=== PATIENT | female | born 1990 | race Caucasian/White ===

== ENCOUNTER 2017-05-30 12:10 | Emergency (ER) | payer OTHER, SELFPAY ==
[~2017-05-30] VITALS: Ht 170.2 cm; Wt 62.3 kg
[2017-05-30] MEDS ORDERED: prenatal vitamins PO (12:20)
[2017-05-30] MEDS ORDERED: diphenhydrAMINE INJ 50MG/ML VIAL (J1200) IV STA (12:26)
[2017-05-30] MEDS ORDERED: PROMETHAZINE INJ 25 MG/ML VIAL (J2550) IV ONE (12:30)
[2017-05-30] MEDS ORDERED: NS 1,000 ML IV ONE (12:30)
[2017-05-30 12:51] LABS: BASO % 0.2 % (0.0-1.0); EOS # 0.1 10^3/uL (0.0-0.50); EOS % 0.3 % (0.0-3.0); IMMATURE GRANULOCYTE % 0.4 % (0-0); LYMPH # 0.9 10^3/uL (1.5-6.5); LYMPH % 5.4 % (24.0-44.0); MEAN CORPUSCULAR HEMOGLOBIN 26.8 pg (27.0-33.0); MEAN CORPUSCULAR HGB CONC 33.6 g/dl (32.0-36.5); MEAN CORPUSCULAR VOLUME 79.9 fl (80.0-96.0); MONO # 0.6 10^3/uL (0.0-0.8); MONO % 3.7 % (0.0-5.0); NEUTROPHILS # 14.9 10^3/uL (1.8-7.7); PLATELET COUNT, AUTOMATED 299 10^3/uL (150-450); RED CELL DISTRIBUTION WIDTH 14.6 % (11.5-14.5); WHITE BLOOD COUNT 16.5 10^3/uL (4.0-10.0)
[2017-05-30 13:30] LABS: ALBUMIN/GLOBULIN RATIO 1.11 (1.00-1.93); ALKALINE PHOSPHATASE 39 U/L (45-117); ALT/SGPT 16 U/L (12-78); ANION GAP 9 MEQ/L (8-16); AST/SGOT 14 U/L (15-37); BILIRUBIN,TOTAL 0.7 MG/DL (0.2-1.0); BLOOD UREA NITROGEN 8 MG/DL (7-18); CALCIUM LEVEL 9.1 MG/DL (8.5-10.1); CARBON DIOXIDE LEVEL 24 MEQ/L (21-32); CHLORIDE LEVEL 104 MEQ/L (98-107); CREATININE FOR GFR 0.62 MG/DL (0.55-1.02); GLOMERULAR FILTRATION RATE > 60.0 (>60); GLUCOSE, FASTING 91 MG/DL (70-105); HCG, SERUM QUANTITATIVE 84074 MIU/ML; POTASSIUM SERUM 3.5 MEQ/L (3.5-5.1); SODIUM LEVEL 137 MEQ/L (136-145); TOTAL PROTEIN 7.6 GM/DL (6.4-8.2)
--- NOTE | 2017-05-30 13:35 | REP ---
First trimester obstetric ultrasound, cramping and vomiting, emergency room request: There are no comparison studies. The bladder is nondistended. There is an intrauterine gestational sac with a pole. cardiac activity is identified. The heart rate is 178 beats per minute. The pole crown-rump length is 2.8 cm corresponding 9 weeks 4 days gestational age. The CONCEPCION is 12/29/2017. There is no subchorionic hematoma. The maternal adnexa and cul-de-sac are unremarkable. With Doppler assessment there is vascular flow in both right and left ovaries. Signed by Mark Calvo MD 05/30/2017 01:27 P
[2017-05-30] MEDS ORDERED: DRAM50TA7 PO (13:58)
[2017-05-30 14:03] VITALS: BP 104/64
== END 2017-05-30 14:08 | disposition home or self-care (01) ==
LOC: M ED 12:10
DX: O26.891 Other specified pregnancy related conditions, first trimester (principal); A08.4 Viral intestinal infection, unspecified; Z3A.10 10 weeks gestation of pregnancy
CPT/HCPCS: 76801; 80053; 81001; 83690; 84702; 85025; 87086; 93976; 96361; 96374; 96375; 99283; J1200

== ENCOUNTER 2017-06-01 15:52 | Emergency (ER) | payer OTHER ==
[~2017-06-01] VITALS: Ht 170.2 cm; Wt 62.3 kg
[~2017-06-01 15:52] MED LIST: DRAM50TA7 PO; prenatal vitamins PO
[2017-06-01] MEDS ORDERED: NS 1,000 ML IV ONE (16:30)
[2017-06-01 16:57] LABS: BASO % 0.1 % (0.0-1.0); EOS # 0.1 10^3/uL (0.0-0.50); EOS % 0.7 % (0.0-3.0); IMMATURE GRANULOCYTE % 0.3 % (0-0); LYMPH # 1.4 10^3/uL (1.5-6.5); LYMPH % 21.1 % (24.0-44.0); MEAN CORPUSCULAR HEMOGLOBIN 26.6 pg (27.0-33.0); MEAN CORPUSCULAR HGB CONC 33.4 g/dl (32.0-36.5); MEAN CORPUSCULAR VOLUME 79.6 fl (80.0-96.0); MONO # 0.6 10^3/uL (0.0-0.8); MONO % 8.3 % (0.0-5.0); NEUTROPHILS # 4.7 10^3/uL (1.8-7.7); NEUTROPHILS % 69.5 % (36.0-66.0); PLATELET COUNT, AUTOMATED 284 10^3/uL (150-450); RED CELL DISTRIBUTION WIDTH 14.6 % (11.5-14.5); WHITE BLOOD COUNT 6.8 10^3/uL (4.0-10.0)
--- NOTE | 2017-06-01 17:01 | REP ---
Chest one-view HISTORY: Shortness of breath Comparison: None The lungs are clear. The heart is normal in size. The pulmonary vasculature is normal in appearance. Impression: No acute disease. Signed by Boaz Galvan MD 06/01/2017 04:52 P
[2017-06-01 17:33] LABS: ANION GAP 9 MEQ/L (8-16); BLOOD UREA NITROGEN 5 MG/DL (7-18); CALCIUM LEVEL 9.3 MG/DL (8.5-10.1); CARBON DIOXIDE LEVEL 23 MEQ/L (21-32); CHLORIDE LEVEL 107 MEQ/L (98-107); CREATININE FOR GFR 0.56 MG/DL (0.55-1.02); FREE T4 1.22 NG/DL (0.76-1.46); GLOMERULAR FILTRATION RATE > 60.0 (>60); GLUCOSE, FASTING 87 MG/DL (70-105); MAGNESIUM LEVEL 2.1 MG/DL (1.8-2.4); PHOSPHORUS LEVEL 3.3 MG/DL (2.5-4.9); POTASSIUM SERUM 3.6 MEQ/L (3.5-5.1); SODIUM LEVEL 139 MEQ/L (136-145)
[2017-06-01 18:16] VITALS: BP 118/71
--- NOTE | 2017-06-02 07:09 | ECGEPIP ---
Stationary ECG Study [facility] - ED Test Date: 2017-06-01 Pat Name: JADEN MEEKS Department: Room: - Gender: F Lead Massage Therapist: anita : 1990 Requested By: ARAMIS Granados Order Number: [id number] Reading MD: Oswald Wilson Measurements Intervals Corinne Rate: 75 P: 60 TN: 133 QRS: 82 QRSD: 86 T: 68 QT: 358 QTc: 402 Interpretive Statements SINUS RHYTHM NO PRIORS Electronically Signed On 06-02-2017 7:09:23 EDT by Oswald Wilson
== END 2017-06-01 18:17 | disposition home or self-care (01) ==
LOC: M ED 15:52
DX: O99.89 Other specified diseases and conditions complicating pregnancy, childbirth and the puerperium (principal); R55 Syncope and collapse; Z3A.10 10 weeks gestation of pregnancy

== ENCOUNTER 2017-06-12 23:16 | Emergency (ER) | payer OTHER ==
[~2017-06-12] VITALS: Ht 170.2 cm; Wt 61.4 kg
[2017-06-12] MEDS ORDERED: ZOLO100T PO (23:51)
[2017-06-13 01:57] LABS: MEAN CORPUSCULAR HEMOGLOBIN 26.9 pg (27.0-33.0); MEAN CORPUSCULAR HGB CONC 33.4 g/dl (32.0-36.5); MEAN CORPUSCULAR VOLUME 80.6 fl (80.0-96.0); PLATELET COUNT, AUTOMATED 312 10^3/uL (150-450); RED CELL DISTRIBUTION WIDTH 14.1 % (11.5-14.5); WHITE BLOOD COUNT 11.3 10^3/uL (4.0-10.0)
--- NOTE | 2017-06-13 03:20 | REPUSA ---
CLINICAL HISTORY: Vaginal bleeding. TECHNIQUE: Transabdominal ultrasound of the pelvis was performed. FINDINGS: Single, live intrauterine gestation. The crown-rump length measures 5.7 cm. This corresponds to an estimated gestational age of 12 weeks a nd 2 days. heart rate 162 beats per minute. Cervical length of 3 cm. No psychotic hemorrhage was identified. No maternal adnexal abnormality is noted. IMPRESSION: Single, live intrauterine gestation. No abnormality is seen.
[2017-06-13 04:40] VITALS: BP 116/71
== END 2017-06-13 04:42 | disposition home or self-care (01) ==
LOC: M ED 23:16
DX: O20.0 Threatened abortion (principal); Z3A.00 Weeks of gestation of pregnancy not specified

== ENCOUNTER 2017-07-05 10:28 | Emergency (ER) | payer OTHER ==
[~2017-07-05] VITALS: Ht 167.6 cm; Wt 63.6 kg
[~2017-07-05 10:28] MED LIST changes: +ZOLO100T PO
[2017-07-05] MEDS ORDERED: HYDR-3363 (10:41)
[2017-07-05 11:49] LABS: BASO % 0.3 % (0.0-1.0); EOS # 0.1 10^3/uL (0.0-0.50); EOS % 1.2 % (0.0-3.0); IMMATURE GRANULOCYTE % 0.2 % (0-0); LYMPH # 1.8 10^3/uL (1.5-6.5); LYMPH % 20.2 % (24.0-44.0); MEAN CORPUSCULAR HEMOGLOBIN 26.9 pg (27.0-33.0); MEAN CORPUSCULAR HGB CONC 33.2 g/dl (32.0-36.5); MEAN CORPUSCULAR VOLUME 81.1 fl (80.0-96.0); MONO # 0.5 10^3/uL (0.0-0.8); MONO % 5.8 % (0.0-5.0); NEUTROPHILS # 6.3 10^3/uL (1.8-7.7); NEUTROPHILS % 72.3 % (36.0-66.0); PLATELET COUNT, AUTOMATED 287 10^3/uL (150-450); RED CELL DISTRIBUTION WIDTH 14.2 % (11.5-14.5); WHITE BLOOD COUNT 8.7 10^3/uL (4.0-10.0)
[2017-07-05 12:21] LABS: ANION GAP 8 MEQ/L (8-16); BLOOD UREA NITROGEN 8 MG/DL (7-18); CALCIUM LEVEL 8.6 MG/DL (8.5-10.1); CARBON DIOXIDE LEVEL 27 MEQ/L (21-32); CHLORIDE LEVEL 105 MEQ/L (98-107); CREATININE FOR GFR 0.53 MG/DL (0.55-1.02); GLOMERULAR FILTRATION RATE > 60.0 (>60); GLUCOSE, FASTING 61 MG/DL (70-105); HCG, SERUM QUANTITATIVE 41376 MIU/ML; POTASSIUM SERUM 3.6 MEQ/L (3.5-5.1); SODIUM LEVEL 140 MEQ/L (136-145)
[2017-07-05 13:20] VITALS: BP 118/73
--- NOTE | 2017-07-09 11:10 | REP ---
Clinical: well-being. Vaginal bleeding. Comparison: 06/13/2017 . Findings: Examination demonstrates a single live early intrauterine in variable presentation. motion is identified by technologist. Placenta is noted posteriorly, grade zero, and with evidence for marginal previa less than 2 cm from the closed internal os. Amniotic fluid volume is normal. Cervix measures 4.0 cm in length and appears closed. No evidence for nuchal cord. Gestational age by LMP 15 weeks 3 days with CONCEPCION 12/24/2017 . Gestational age by current measurements 15 weeks 2 days with CONCEPCION 12/25/2017 . FHR equals 141 beats per minute. BPD 3.0 cm 15 weeks 4 days HC 11.3 cm 15 weeks 3 days AC 9.0 cm 15 weeks 2 days FL 1.7 cm 15 weeks 0 days HL 1.8 cm 15 weeks 1 day HC/AC ratio 1.25 Estimated weight 116 grams ( 32nd percentile). Impression: 1. Single live early intrauterine in variable presentation demonstrating appropriate interval growth measuring at 15 weeks 2 days gestational age. 2. Marginal placenta previa. 3. Complete anatomical assessment should be performed at 19-20 weeks. Signed by Pedro Sheikh MD 07/05/2017 01:06 P
== END 2017-07-05 13:21 | disposition home or self-care (01) ==
LOC: M ED 10:28
DX: O26.892 Other specified pregnancy related conditions, second trimester (principal); R10.2 Pelvic and perineal pain; O26.852 Spotting complicating pregnancy, second trimester; O44.22 Partial placenta previa NOS or without hemorrhage, second trimester; Z3A.15 15 weeks gestation of pregnancy

== ENCOUNTER 2018-02-08 20:22 | Emergency (ER) | payer OTHER ==
[2018-02-08 21:50] LABS: BASO # 0.1 10^3/uL (0.0-0.2); EOS # 0.3 10^3/uL (0.0-0.50); EOS % 4.6 % (0.0-3.0); HEMATOCRIT 37.2 % (36.0-47.0); HEMOGLOBIN 11.7 g/dl (12.0-15.5); IMMATURE GRANULOCYTE % 0.2 % (0-3.0); LYMPH # 2.2 10^3/uL (1.5-6.5); LYMPH % 35.8 % (24.0-44.0); MEAN CORPUSCULAR HEMOGLOBIN 23.9 pg (27.0-33.0); MEAN CORPUSCULAR HGB CONC 31.5 g/dl (32.0-36.5); MEAN CORPUSCULAR VOLUME 76.1 fl (80.0-96.0); MONO # 0.5 10^3/uL (0.0-0.8); MONO % 7.3 % (0.0-5.0); NEUTROPHILS # 3.2 10^3/uL (1.8-7.7); NEUTROPHILS % 51.1 % (36.0-66.0); PLATELET COUNT, AUTOMATED 290 10^3/uL (150-450); RED BLOOD COUNT 4.89 10^6/uL (4.00-5.40); RED CELL DISTRIBUTION WIDTH 20.3 % (11.5-14.5); WHITE BLOOD COUNT 6.3 10^3/uL (4.0-10.0)
[2018-02-08 22:21] LABS: ANION GAP 8 MEQ/L (8-16); BLOOD UREA NITROGEN 17 MG/DL (7-18); CALCIUM LEVEL 8.8 MG/DL (8.5-10.1); CARBON DIOXIDE LEVEL 25 MEQ/L (21-32); CHLORIDE LEVEL 109 MEQ/L (98-107); CREATININE FOR GFR 0.91 MG/DL (0.55-1.30); FREE THYROXINE INDEX 2.6 % (1.3-4.8); GLOMERULAR FILTRATION RATE > 60.0 (>60); GLUCOSE, FASTING 91 MG/DL (70-100); SODIUM LEVEL 142 MEQ/L (136-145); T UPTAKE 36 % (30-39); THYROXINE (T4) 7.3 UG/DL (4.5-12.0)
== END 2018-02-08 23:08 | disposition home or self-care (01) ==
LOC: M ED 20:22
DX: Z86.79 Personal history of other diseases of the circulatory system (principal); R00.1 Bradycardia, unspecified; F32.9 Major depressive disorder, single episode, unspecified; Z79.899 Other long term (current) drug therapy
CPT/HCPCS: 93005

== ENCOUNTER → 2018-09-03 | Outpatient (CLI) | payer OTHER ==
[~2018-09-03] MED LIST changes: +HYDR-3363
[2018-09-03 17:17] LABS: BASO # 0.1 10^3/uL (0.0-0.2); BASO % 0.7 % (0.0-1.0); EOS # 0.2 10^3/uL (0.0-0.50); EOS % 2.1 % (0.0-3.0); HEMATOCRIT 42.2 % (36.0-47.0); HEMOGLOBIN 13.8 g/dl (12.0-15.5); LYMPH # 2.5 10^3/uL (1.5-6.5); LYMPH % 29.7 % (24.0-44.0); MEAN CORPUSCULAR HGB CONC 32.7 g/dl (32.0-36.5); MEAN CORPUSCULAR VOLUME 79.6 fl (80.0-96.0); MONO # 0.6 10^3/uL (0.0-0.8); MONO % 7.6 % (0.0-5.0); NEUTROPHILS # 4.9 10^3/uL (1.8-7.7); NEUTROPHILS % 59.7 % (36.0-66.0); PLATELET COUNT, AUTOMATED 335 10^3/uL (150-450); WHITE BLOOD COUNT 8.3 10^3/uL (4.0-10.0)
[2018-09-03 17:43] LABS: ALBUMIN 4.2 GM/DL (3.2-5.2); ALT/SGPT 25 U/L (12-78); BILIRUBIN,TOTAL 0.3 MG/DL (0.2-1.0); BLOOD UREA NITROGEN 13 MG/DL (7-18); CALCIUM LEVEL 9.4 MG/DL (8.5-10.1); CARBON DIOXIDE LEVEL 25 MEQ/L (21-32); CHLORIDE LEVEL 104 MEQ/L (98-107); CREATININE FOR GFR 0.82 MG/DL (0.55-1.30); FERRITIN 14 NG/ML (8-252); FREE T4 0.93 NG/DL (0.76-1.46); GLOMERULAR FILTRATION RATE > 60.0 (>60); GLUCOSE, FASTING 84 MG/DL (70-100); IRON (FE) 38 UG/DL (50-170); POTASSIUM SERUM 4.1 MEQ/L (3.5-5.1); SODIUM LEVEL 139 MEQ/L (136-145); TOTAL IRON BINDING CAPACITY 423 UG/DL (250-450); TOTAL PROTEIN 7.7 GM/DL (6.4-8.2)
== END ==
LOC: M SMT 14:35
PROVIDERS: ATTEND Physician Assistant
DX: Z13.0 Encounter for screening for diseases of the blood and blood-forming organs and certain disorders involving the immune mechanism (principal)

== ENCOUNTER → 2019-05-01 | Outpatient (REF) | payer OTHER ==
[2019-05-01 13:20] LABS: HEMOGLOBIN 13.9 g/dl (12.0-15.5); MEAN CORPUSCULAR HEMOGLOBIN 29.6 pg (27.0-33.0); MEAN CORPUSCULAR HGB CONC 33.9 g/dl (32.0-36.5); MEAN CORPUSCULAR VOLUME 87.2 fl (80.0-96.0); PLATELET COUNT, AUTOMATED 282 10^3/uL (150-450); WHITE BLOOD COUNT 9.4 10^3/uL (4.0-10.0)
[2019-05-01 14:12] LABS: HCG, SERUM QUANTITATIVE 103171 MIU/ML; RUBELLA IgG QUALITATIVE EQUIVOCAL (IMMUNE)
[2019-05-01 14:34] LABS: HEPATITIS C VIRUS ABY INDEX 0.1 INDEX (<0.8); HIV 1&2 SCREEN CENTAUR NEGATIVE (NEGATIVE)
== END ==
LOC: M LAB REF 12:11
PROVIDERS: ATTEND Nurse Practitioner Women's Health
DX: Z32.01 Encounter for pregnancy test, result positive (principal); O36.80X0 Pregnancy with inconclusive fetal viability, not applicable or unspecified; Z3A.00 Weeks of gestation of pregnancy not specified

== ENCOUNTER → 2019-09-16 | Outpatient (CLI) | payer OTHER ==
[2019-09-16 12:40] LABS: HEMATOCRIT 33.2 % (36.0-47.0); HEMOGLOBIN 10.5 g/dl (12.0-15.5); MEAN CORPUSCULAR HEMOGLOBIN 26.7 pg (27.0-33.0); MEAN CORPUSCULAR HGB CONC 31.6 g/dl (32.0-36.5); MEAN CORPUSCULAR VOLUME 84.5 fl (80.0-96.0); PLATELET COUNT, AUTOMATED 348 10^3/uL (150-450); RED BLOOD COUNT 3.93 10^6/uL (4.00-5.40); WHITE BLOOD COUNT 6.8 10^3/uL (4.0-10.0)
== END ==
LOC: M LAB 10:59
PROVIDERS: ATTEND Obstetrics & Gynecology
DX: Z34.82 Encounter for supervision of other normal pregnancy, second trimester (principal)

== ENCOUNTER 2019-11-01 09:16 | Inpatient (IN) | payer OTHER ==
[2019-11-01] VITALS (25 sets, daily range): BP systolic 104–142; BP diastolic 53–88
[~2019-11-01] VITALS: Ht 170.2 cm; Wt 79.1 kg
[2019-11-01] MEDS ORDERED: TUMS750C5 PO (09:41)
[2019-11-01] MEDS ORDERED: PENICILLIN G POTASSIUM IV 5 MU in D5W MINI-BAG PLUS 100 ML IV STA (10:00)
[2019-11-01] MEDS ORDERED: LACTATED RINGER'S 1000 ML IV STA (10:00)
--- NOTE | 2019-11-01 10:11 | HPEPDOC ---
Obstetrical History & Physical General Date of Admission 11/01/2019 Primary Care Physician: ADY GONZALES CNM History of Present Illness Patient is a 29-year-old female who is a who is 36.3 weeks gestation with an CONCEPCION of 11/26/19 established by her CONCEPCION and confirmed with a first tri mester ultrasound. She initiated care in her first trimester with [facility]. Her has been complicated by anxiety, depression and unilateral renal agenesis. Her depression has been managed with Zoloft. She presents to L&D with complaints of leaking a large amount of clear fluid at 0730 and painful contractions. She reports some bloody show and active movement. Chief Complaint: Contractions, pre-term, Rupture of membranes Information Provided By: Patient Age: 29 : 3 Term: 2 Pre-term: 0 Abortions: 0 Livin Care Care: Good Care Dating Final EDC: Nov 26, 2019 Final EDC by: LMP EGA at Admission: 36.3 Antepartum Course Diagnos(e)s PROM Height (inches): 67 Pre- weight (lbs.): 156 Admission Weight (lbs.): 176 Change in Weight (lbs.): 20 Past Medical History Past Obstetrical History #1: Past Obstetrical History: Primgravida Gestation: 37.5 Type of Delivery: Spontaneous Vaginal Del. (December 2015) Sex of : Male (weight 7 lbs 5 oz) Complications: Yes (retained placenta) Past Obstetrical History #2: Past Obstetrical History: Multigravida Gestation: 38 Type of Delivery: Spontaneous Vaginal Del. (December 2017) Sex of : Female (weight 7 lbs 9 oz) Complications: No Past Medical History Medical History congenital renal agenesis Surgical History: [place] teeth Family History Significant Family History: No pertinent family hx Social History Marital Status: Family situation: Spouse/partner home Psychosocial History: Anxiety, Depression * Smoker: non-smoker Alcohol: Denies Drugs: denies Abuse Violence Screening Have you been hit/kicked/slapp: No Have you been sexually assault: No Allergies Coded Allergies: No Known Allergies (Unverified , 07/05/17) Medications Scheduled Sertraline Hcl (Zoloft) 100 Mg Tab, 75 MG PO DAILY [ vitamins] , 1 TAB PO DAILY Scheduled PRN Calcium Carbonate (Tums) 300 Mg Tab.chew, 1-2 TABS PO Q6HP PRN for INDIGESTION Physical Examination Physical Examination GENERAL: Alert and oriented times three. BREAST: . ABDOMEN: Gravid and non-tender to touch. FETUS: Is vertex (VTX) by sterile vaginal examination (SVE), fetus is vertex (VTX) by Donovan. HEART RATE: Regular rate and rhythm. LUNGS: Clear to auscultation (CTA). EXTREMITIES: No edema. No clonus. Deep tendon reflexes (DTRs) + 2. Pertinent Laboratoy Data Blood Type: B+ RBC Antibody Screen: Negative HIV: Negative Hepatitis B: Negative Hepatitis C: Negative Rapid Plasma Reagin: Nonreactive Rubella: Nonreactive Chlamydia/Gonorrhea: Negative Group B Streptococcus: Unknown Quad Screen Test: Declined Vaginal Examination Dilation: 3 cm (Moderate amount of clear fluid noted with exam and +nitrazine noted) Effacement: 90% Station: -2 Cervical Consistency: Soft Cervical Position: Anterior Presentation: Cephalic presentation Position: Vertex (occiput) Assessment Heart Rate (FHR): 130 Variability: Moderate Accelerations: Positive Decelerations: None Tocometer Contractions: Yes Frequency: regular Strength: palpated as moderate Multi-drug resistant Organism: No history of MDRO Assessment/Plan Assessment IUP at 36.3 weeks gestation GBS unknown Category I FHR tracing spontaneous rupture of membranes Plan Admit and orient. Reviewed premature ruptured membranes and increased risk of respiratory complications associated with delivery and potential NICU admission. All questions addressed. Betamethasone IM injection for lung maturity. OOB ad magali. Diet: clears. Group B Streptococcus (GBS) unknown and obtained. Will start antibiotics. Labs and intravenous (IV) per unit protocol. Anesthesia consult per patient's request. Neonatology notified. Lactated Ringers (LR): Bolus 800 mL, then at 125 mL/hr. Anticipate cervical change and . . C-S as appropriate. ADY GONZALES CNM Nov 01, 2019 10:11
[2019-11-01 10:23] LABS: HEMATOCRIT 31.2 % (36.0-47.0); MEAN CORPUSCULAR HEMOGLOBIN 24.6 pg (27.0-33.0); MEAN CORPUSCULAR HGB CONC 32.1 g/dl (32.0-36.5); MEAN CORPUSCULAR VOLUME 76.7 fl (80.0-96.0); PLATELET COUNT, AUTOMATED 239 10^3/uL (150-450); RED BLOOD COUNT 4.07 10^6/uL (4.00-5.40); WHITE BLOOD COUNT 8.7 10^3/uL (4.0-10.0)
[2019-11-01] MEDS ORDERED: BETAMETHASONE SOLUSPAN 6MG/ML INJ 5ML (J0702) IM SCH (11:00)
[2019-11-01] MEDS ORDERED: LR 1,000 ML IV SCH (11:00)
[2019-11-01] MEDS ORDERED: FENTANYL 2MCG/ML ROPIVACAINE 0.2% IN 0.9% NACL 100ML IVBAG As Ordered ONE (11:02)
[2019-11-01] MEDS ORDERED: OXYTOCIN 30 UNITS IN 0.9% NaCl 500ML IV BAG (J2590) As Ordered ONE (12:10)
[2019-11-01] MEDS ORDERED: LACTATED RINGER'S 1000 ML IV PRN (12:15)
[2019-11-01] MEDS ORDERED: NALOXONE INJ 0.4 MG/1 ML VIAL (J2310) IV PRN (12:15)
[2019-11-01] MEDS ORDERED: EPIDURAL COMMENT XX SCH (12:15)
[2019-11-01] MEDS ORDERED: ePHEDrine SULFATE 25 MG/5 ML(5MG/ML) SYRINGE IV PRN (12:15)
[2019-11-01] MEDS ORDERED: diphenhydrAMINE INJ 50MG/ML VIAL (J1200) IV PRN (12:15)
[2019-11-01] MEDS ORDERED: FENTANYL/ROPIVACAINE/NACL BAG 100 ML EPIDURAL SCH (12:15)
[2019-11-01] MEDS ORDERED: EPIDURAL/PCA KEYS XX PRN (12:15)
[2019-11-01] MEDS ORDERED: REFRIGERATOR IV KEYS XX PRN (12:15)
[2019-11-01] MEDS ORDERED: ONDANSETRON 4MG/2ML VIAL (J2405) IV PRN (12:15)
[2019-11-01] MEDS: SLF 3 ML SYR IV SCH ×2 (14:00→20:35)
[2019-11-01] MEDS ORDERED: PENICILLIN G POTASSIUM IV 2.5 MU in IV 1 EA IV SCH (14:00)
[2019-11-01] MEDS ORDERED: OXYTOCIN DRIP 30 UNITS in IV 1 EA IV SCH (14:19)
[2019-11-01] MEDS ORDERED: ACETAMINOPHEN TAB 650MG DOSE (2X325MG) PO PRN (14:30)
[2019-11-01] MEDS ORDERED: DIBUCAINE 1% OINTMENT 30GM TOP PRN (14:30)
[2019-11-01] MEDS ORDERED: RHOGAM 300 MCG (1500 IU) INJ (J2790) IM SCH (14:30)
[2019-11-01] MEDS ORDERED: ANUSOL HC CREAM 30GM TOP PRN (14:30)
[2019-11-01] MEDS ORDERED: IBUPROFEN 800 MG TAB PO PRN (14:30)
[2019-11-01] MEDS ORDERED: IBUPROFEN 600 MG TAB PO PRN (14:30)
[2019-11-01] MEDS ORDERED: MEASLES,MUMPS,RUBELLA VACCINE INJ (MMR-II) (90707) SC SCH (14:30)
[2019-11-01] MEDS ORDERED: METHYLERGONOVINE MALEATE 0.2 MG TAB PO PRN (14:30)
[2019-11-01] MEDS ORDERED: DOCUSATE SODIUM 100 MG CAP PO PRN (14:30)
[2019-11-01] MEDS ORDERED: ACETAMINOPHEN 500 MG TAB PO PRN (14:30)
--- NOTE | 2019-11-01 14:52 | DNPDOC ---
[facility] Delivery Note Delivery Note DATE OF DELIVERY: 11/01/19 at 1244 PREDELIVERY DIAGNOSIS: 36-3/7 weeks' gestation and labor. POST DELIVERY DIAGNOSIS: Delivered. PROCEDURE: Spontaneous vaginal delivery. STORE CUSTODIAN: Ady Callahan CNM, IDANIA ANESTHESIA: epidural. ESTIMATED BLOOD LOSS: 250 mL. FINDINGS: 6 pounds 7 ounces; 2929 grams; male , Score 8/9, left compound hand, PROM with labor. DELIVERY SUMMARY: Patient is a 29-year-old female who is now a who presented to L&D in active labor with ruptured membranes. She received 1 dose of betamethasone for lung maturity. Neonatology and the NICU were notified. She received an epidural for pain management. The patient progressed to fully dilated at 1232 and pushed to living male in the OP position with restitution to LOT at 1244. A left compound hand was noted. FOB helped assist with delivery. The anterior shoulder delivered with ease and the corpus immediately followed. the cord was clamped after 4 minutes and cut by the FOB. A 3-vessel cord was noted. The baby was placed on the maternal abdomen active and crying. The placenta delivered spontaneously and intact at 1254. Uterine hemostasis was achieved via rapid infusion of IV Pitocin and fundal massage. the vagina, perineum, and cervix was inspected and found to have a perineal abrasion that was not repaired. They plan on naming their son Rodriguez. Both mom and baby are in stable condition. All counts of instruments and sponges were correct. ADY CALLAHAN CNM Nov 01, 2019 14:52
[2019-11-01] MEDS ORDERED: SLF 3 ML SYR IV PRN (15:30)
[2019-11-01] MEDS ORDERED: SERTRALINE HCL 25 MG TABLET PO SCH (21:00)
[2019-11-02 06:00] VITALS: BP 108/61
[2019-11-02] MEDS: SLF 3 ML SYR IV SCH (06:09)
[2019-11-02] MEDS ORDERED: IBUP80TA PO (08:09)
[2019-11-02] MEDS ORDERED: ACET-683 PO (08:09)
[2019-11-02] MEDS ORDERED: PRENATAL VITAMINS CHEWABLE TABLET PO SCH (09:00)
== END 2019-11-02 14:52 | disposition home or self-care (01) | DRG 807 ==
LOC: M LDO 09:16 → M LDI 10:06 → M OBS 15:08
PROVIDERS: ADMIT Advanced Practice Midwife; ATTEND Advanced Practice Midwife
PROC: 10E0XZZ Delivery of Products of Conception, External Approach (ICD-10-PCS; principal; 2019-11-01)
DX: O42.013 Preterm premature rupture of membranes, onset of labor within 24 hours of rupture, third trimester (principal); Z37.0 Single live birth; Z3A.36 36 weeks gestation of pregnancy; O99.344 Other mental disorders complicating childbirth; F41.9 Anxiety disorder, unspecified; F32.9 Major depressive disorder, single episode, unspecified; O32.6XX0 Maternal care for compound presentation, not applicable or unspecified

== ENCOUNTER → 2020-02-12 | Outpatient (CLI) | payer OTHER ==
[~2020-02-12] MED LIST changes: +ACET-683 PO; +IBUP80TA PO; +TUMS750C5 PO
[2020-02-12 16:25] LABS: BASO % 0.6 % (0.0-1.0); EOS # 0.1 10^3/uL (0.0-0.5); EOS % 2.3 % (0.0-3.0); HEMATOCRIT 41.5 % (36.0-47.0); LYMPH # 2.1 10^3/uL (1.5-5.0); LYMPH % 33.7 % (24.0-44.0); MEAN CORPUSCULAR HEMOGLOBIN 25.4 pg (27.0-33.0); MEAN CORPUSCULAR HGB CONC 31.3 g/dl (32.0-36.5); MEAN CORPUSCULAR VOLUME 81.1 fl (80.0-96.0); MONO # 0.4 10^3/uL (0.0-0.8); MONO % 6.9 % (0.0-5.0); NEUTROPHILS # 3.5 10^3/uL (1.5-8.5); NEUTROPHILS % 56.3 % (36.0-66.0); PLATELET COUNT, AUTOMATED 342 10^3/uL (150-450); RED BLOOD COUNT 5.12 10^6/uL (4.00-5.40); WHITE BLOOD COUNT 6.2 10^3/uL (4.0-10.0)
[2020-02-12 16:38] LABS: ALT/SGPT 25 U/L (12-78); BILIRUBIN,DIRECT < 0.1 MG/DL (0.0-0.2); BILIRUBIN,TOTAL 0.3 MG/DL (0.2-1.0); BLOOD UREA NITROGEN 10 MG/DL (7-18); CALCIUM LEVEL 9.2 MG/DL (8.5-10.1); CARBON DIOXIDE LEVEL 26 MEQ/L (21-32); CHLORIDE LEVEL 105 MEQ/L (98-107); CREATININE FOR GFR 0.84 MG/DL (0.55-1.30); FERRITIN 11 NG/ML (8-252); FREE T4 1.03 NG/DL (0.76-1.46); GLOMERULAR FILTRATION RATE > 60.0 (>60); GLUCOSE, FASTING 80 MG/DL (70-100); IRON (FE) 46 UG/DL (50-170); PERCENT SATURATION 11.2 % (13.2-45.0); POTASSIUM SERUM 4.5 MEQ/L (3.5-5.1); SODIUM LEVEL 136 MEQ/L (136-145); THYROID STIMULATING HORMONE 0.657 uIU/ML (0.358-3.740); TOTAL 25(OH) VITAMIN D 20.9 NG/ML (30.0-100.0); TOTAL IRON BINDING CAPACITY 409 UG/DL (250-450); TOTAL PROTEIN 7.6 GM/DL (6.4-8.2)
== END ==
LOC: M LRY 10:55
PROVIDERS: ATTEND Physician Assistant
DX: R53.83 Other fatigue (principal)

== ENCOUNTER 2020-06-29 22:02 | Emergency (ER) | payer OTHER ==
[~2020-06-29] VITALS: Ht 170.2 cm; Wt 63.6 kg
[2020-06-29] MEDS ORDERED: NS 500 ML IV ONE (23:00)
[2020-06-29] MEDS ORDERED: ONDANSETRON 4MG/2ML VIAL IV ONE (23:00)
[2020-06-29] MEDS ORDERED: PROMETHAZINE INJ 25 MG/ML VIAL (J2550) IV ONE (23:15)
[2020-06-30] MEDS ORDERED: ONDA4TAB6 PO (01:21)
[2020-06-30 01:30] VITALS: BP 139/77
== END 2020-06-30 01:37 | disposition home or self-care (01) ==
LOC: M ED 22:02
DX: K52.9 Noninfective gastroenteritis and colitis, unspecified (principal); F41.9 Anxiety disorder, unspecified; F33.9 Major depressive disorder, recurrent, unspecified; F90.9 Attention-deficit hyperactivity disorder, unspecified type; Q60.0 Renal agenesis, unilateral; Z79.899 Other long term (current) drug therapy; Z98.82 Breast implant status
CPT/HCPCS: 96374; 99284; U0002

== ENCOUNTER → 2020-07-17 | Outpatient (CLI) | payer OTHER ==
[~2020-07-17] MED LIST changes: +ONDA4TAB6 PO
[2020-07-17 15:01] LABS: BASO # 0.1 10^3/uL (0.0-0.2); EOS # 0.1 10^3/uL (0.0-0.5); EOS % 1.3 % (0.0-3.0); HEMATOCRIT 42.6 % (36.0-47.0); HEMOGLOBIN 13.6 g/dl (12.0-15.5); LYMPH # 1.8 10^3/uL (1.5-5.0); MEAN CORPUSCULAR HEMOGLOBIN 26.7 pg (27.0-33.0); MEAN CORPUSCULAR HGB CONC 31.9 g/dl (32.0-36.5); MEAN CORPUSCULAR VOLUME 83.7 fl (80.0-96.0); MONO # 0.4 10^3/uL (0.0-0.8); MONO % 6.2 % (0.0-5.0); NEUTROPHILS % 63.3 % (36.0-66.0); PLATELET COUNT, AUTOMATED 336 10^3/uL (150-450); RED BLOOD COUNT 5.09 10^6/uL (4.00-5.40); WHITE BLOOD COUNT 6.3 10^3/uL (4.0-10.0)
[2020-07-17 15:26] LABS: ALBUMIN 4.1 GM/DL (3.2-5.2); ALT/SGPT 16 U/L (12-78); BILIRUBIN,TOTAL 0.3 MG/DL (0.2-1.0); BLOOD UREA NITROGEN 9 MG/DL (7-18); CALCIUM LEVEL 9.5 MG/DL (8.5-10.1); CARBON DIOXIDE LEVEL 29 MEQ/L (21-32); CHLORIDE LEVEL 106 MEQ/L (98-107); CREATININE FOR GFR 0.85 MG/DL (0.55-1.30); FERRITIN 11 NG/ML (8-252); GLOMERULAR FILTRATION RATE > 60.0 (>60); GLUCOSE, FASTING 100 MG/DL (70-100); IRON (FE) 52 UG/DL (50-170); PERCENT SATURATION 13.7 % (13.2-45.0); SODIUM LEVEL 138 MEQ/L (136-145); TOTAL IRON BINDING CAPACITY 379 UG/DL (250-450); TOTAL PROTEIN 7.4 GM/DL (6.4-8.2)
[2020-07-17 15:28] LABS: VITAMIN B12 LEVEL 584 PG/ML (247-911)
[2020-07-17 15:35] LABS: COLLAGEN EPINEPHRINE 80 SECONDS (74-162)
== END ==
LOC: M LAB 14:24
PROVIDERS: ATTEND Family Medicine
DX: R23.3 Spontaneous ecchymoses (principal); D50.9 Iron deficiency anemia, unspecified

== ENCOUNTER → 2020-10-29 | Outpatient (REF) | payer OTHER | LOC: M LAB REF 16:21 | PROVIDERS: ATTEND Advanced Practice Midwife | DX: O02.1 Missed abortion (principal) ==